=== PATIENT | female | born 1940 | race Caucasian/White ===

== ENCOUNTER → 2016-08-17 | Outpatient (REF) | payer MEDICARE | LOC: M LAB REF 12:43 | PROVIDERS: ATTEND Internal Medicine Medical Oncology | DX: C56.9 Malignant neoplasm of unspecified ovary (principal) ==

== ENCOUNTER → 2017-01-15 | Outpatient (REF) | payer MEDICARE ==
[2017-01-16 09:41] LABS: PERCENT SATURATION 14.5 % (13.2-37.4)
[2017-01-16 11:18] LABS: CA 125 5.6 U/ML (<30.2)
== END ==
LOC: M LAB REF 10:51
PROVIDERS: ATTEND Internal Medicine Medical Oncology
DX: C56.9 Malignant neoplasm of unspecified ovary (principal); D64.9 Anemia, unspecified

== ENCOUNTER → 2017-03-05 | Outpatient (REF) | payer MEDICARE | LOC: M LABDRAWC 16:19 | PROVIDERS: ATTEND Obstetrics & Gynecology Gynecologic Oncology | DX: C56.1 Malignant neoplasm of right ovary (principal) ==

== ENCOUNTER → 2017-07-19 | Outpatient (REF) | payer MEDICARE ==
[2017-07-20 09:45] LABS: CA 125 75.5 U/ML (<30.2)
== END ==
LOC: M LAB REF 13:03
DX: C56.9 Malignant neoplasm of unspecified ovary (principal)
CPT/HCPCS: 86304

== ENCOUNTER → 2017-07-30 | Outpatient (CLI) | payer MEDICARE ==
[~2017-07-30] MED LIST: GASTROGRAFIN SOLUTION 30ML (Q9963) As Ordered; ISOVUE-370 76% 100ML VIAL (Q9967) As Ordered
== END ==
LOC: M RAD 08:20
DX: R93.8 Abnormal findings on diagnostic imaging of other specified body structures (principal); R91.1 Solitary pulmonary nodule
CPT/HCPCS: Q9963

== ENCOUNTER → 2017-10-04 | Outpatient (REF) | payer MEDICARE ==
[2017-10-04 13:35] LABS: INR 0.97; PARTIAL THROMBOPLASTIN TIME 31.2 SECONDS (26.8-37.9)
[2017-10-05 10:46] LABS: CARCINOEMBRYONIC ANTIGEN 51.9 NG/ML (<2.5)
== END ==
LOC: M LAB REF 13:12
DX: C18.9 Malignant neoplasm of colon, unspecified (principal); Z79.01 Long term (current) use of anticoagulants
CPT/HCPCS: 82378

== ENCOUNTER → 2017-12-24 | Outpatient (REF) | payer MEDICARE ==
[2017-12-24 11:55] LABS: BASO % 0.4 % (0.0-1.0); EOS # 0.1 10^3/uL (0.0-0.50); HEMOGLOBIN 10.4 g/dl (12.0-15.5); IMMATURE GRANULOCYTE # 0.2 10^3/uL (0-0); IMMATURE GRANULOCYTE % 2.3 % (0-3.0); LYMPH # 1.1 10^3/uL (1.5-4.5); LYMPH % 10.7 % (24.0-44.0); MEAN CORPUSCULAR HEMOGLOBIN 29.7 pg (27.0-33.0); MEAN CORPUSCULAR HGB CONC 31.5 g/dl (32.0-36.5); MEAN CORPUSCULAR VOLUME 94.3 fl (80.0-96.0); MONO % 9.5 % (0.0-5.0); NEUTROPHILS # 7.8 10^3/uL (1.8-7.7); NEUTROPHILS % 76.1 % (36.0-66.0); RED CELL DISTRIBUTION WIDTH 20.3 % (11.5-14.5); WHITE BLOOD COUNT 10.2 10^3/uL (4.0-10.0)
[2017-12-24 12:11] LABS: PLATELET COUNT, AUTOMATED 91 10^3/uL (150-450)
[2017-12-24 12:12] LABS: IMMATURE PLATELET FRACTION % 5.4 % (0.0-9.6); PLATELET F 91; POSITIVE MORPH POS FLAG
[2017-12-24 12:26] LABS: ALBUMIN 3.3 GM/DL (3.2-5.2); ALBUMIN/GLOBULIN RATIO 1.14 (1.00-1.93); ALKALINE PHOSPHATASE 229 U/L (45-117); ALT/SGPT 54 U/L (12-78); ANION GAP 9 MEQ/L (8-16); AST/SGOT 50 U/L (7-37); BILIRUBIN,TOTAL 0.3 MG/DL (0.2-1.0); BLOOD UREA NITROGEN 14 MG/DL (7-18); CALCIUM LEVEL 8.9 MG/DL (8.8-10.2); CARBON DIOXIDE LEVEL 30 MEQ/L (21-32); CHLORIDE LEVEL 107 MEQ/L (98-107); CREATININE FOR GFR 0.99 MG/DL (0.55-1.30); GLOMERULAR FILTRATION RATE 57.8 (>39); GLUCOSE, FASTING 121 MG/DL (70-100); POTASSIUM SERUM 3.5 MEQ/L (3.5-5.1); SODIUM LEVEL 146 MEQ/L (136-145); TOTAL PROTEIN 6.2 GM/DL (6.4-8.2)
[2017-12-25 09:52] LABS: CARCINOEMBRYONIC ANTIGEN 2.5 NG/ML (<2.5)
== END ==
LOC: M LABDRAWC 11:28
DX: C18.9 Malignant neoplasm of colon, unspecified (principal); D64.9 Anemia, unspecified
CPT/HCPCS: 82378

== ENCOUNTER → 2017-12-31 | Outpatient (REF) | payer MEDICARE ==
[2017-12-31 12:37] LABS: BASO % 0.1 % (0.0-1.0); EOS # 0.1 10^3/uL (0.0-0.50); EOS % 1.4 % (0.0-3.0); HEMATOCRIT 34.2 % (36.0-47.0); HEMOGLOBIN 10.8 g/dl (12.0-15.5); IMMATURE GRANULOCYTE # 0.1 10^3/uL (0-0); IMMATURE GRANULOCYTE % 0.6 % (0-3.0); LYMPH # 1.1 10^3/uL (1.5-4.5); LYMPH % 13.8 % (24.0-44.0); MEAN CORPUSCULAR HEMOGLOBIN 30.1 pg (27.0-33.0); MEAN CORPUSCULAR HGB CONC 31.6 g/dl (32.0-36.5); MEAN CORPUSCULAR VOLUME 95.3 fl (80.0-96.0); MONO # 0.7 10^3/uL (0.0-0.8); MONO % 9.3 % (0.0-5.0); NEUTROPHILS # 5.8 10^3/uL (1.8-7.7); NEUTROPHILS % 74.8 % (36.0-66.0); PLATELET COUNT, AUTOMATED 132 10^3/uL (150-450); RED BLOOD COUNT 3.59 10^6/uL (4.00-5.40); RED CELL DISTRIBUTION WIDTH 20.9 % (11.5-14.5); WHITE BLOOD COUNT 7.7 10^3/uL (4.0-10.0)
== END ==
LOC: M LABDRAWC 11:45
DX: C18.9 Malignant neoplasm of colon, unspecified (principal)
CPT/HCPCS: 85027

== ENCOUNTER → 2018-01-14 | Outpatient (REF) | payer MEDICARE ==
[2018-01-14 13:50] LABS: BASO # 0.1 10^3/uL (0.0-0.2); BASO % 0.6 % (0.0-1.0); EOS # 0.1 10^3/uL (0.0-0.50); EOS % 0.9 % (0.0-3.0); HEMATOCRIT 32.9 % (36.0-47.0); HEMOGLOBIN 10.4 g/dl (12.0-15.5); IMMATURE GRANULOCYTE # 0.3 10^3/uL (0-0); IMMATURE GRANULOCYTE % 2.3 % (0-3.0); LYMPH # 1.2 10^3/uL (1.5-4.5); MEAN CORPUSCULAR HEMOGLOBIN 31.2 pg (27.0-33.0); MEAN CORPUSCULAR HGB CONC 31.6 g/dl (32.0-36.5); MEAN CORPUSCULAR VOLUME 98.8 fl (80.0-96.0); MONO # 0.8 10^3/uL (0.0-0.8); MONO % 7.7 % (0.0-5.0); NEUTROPHILS # 8.3 10^3/uL (1.8-7.7); NEUTROPHILS % 77.5 % (36.0-66.0); RED BLOOD COUNT 3.33 10^6/uL (4.00-5.40); RED CELL DISTRIBUTION WIDTH 21.3 % (11.5-14.5); WHITE BLOOD COUNT 10.7 10^3/uL (4.0-10.0)
[2018-01-14 14:10] LABS: ALBUMIN 3.3 GM/DL (3.2-5.2); ALKALINE PHOSPHATASE 239 U/L (45-117); ALT/SGPT 64 U/L (12-78); ANION GAP 10 MEQ/L (8-16); AST/SGOT 58 U/L (7-37); BILIRUBIN,TOTAL 0.3 MG/DL (0.2-1.0); BLOOD UREA NITROGEN 17 MG/DL (7-18); CALCIUM LEVEL 8.5 MG/DL (8.8-10.2); CARBON DIOXIDE LEVEL 29 MEQ/L (21-32); CHLORIDE LEVEL 107 MEQ/L (98-107); CREATININE FOR GFR 0.95 MG/DL (0.55-1.30); GLOMERULAR FILTRATION RATE > 60.0 (>39); GLUCOSE, FASTING 116 MG/DL (70-100); POTASSIUM SERUM 4.1 MEQ/L (3.5-5.1); SODIUM LEVEL 146 MEQ/L (136-145); TOTAL PROTEIN 6.3 GM/DL (6.4-8.2)
[2018-01-14 14:29] LABS: PLATELET COUNT, AUTOMATED 77 10^3/uL (150-450)
[2018-01-14 14:30] LABS: IMMATURE PLATELET FRACTION % 7.2 % (0.0-9.6)
[2018-01-15 09:11] LABS: CARCINOEMBRYONIC ANTIGEN 1.3 NG/ML (<2.5)
== END ==
LOC: M LABDRAWC 12:16
DX: C18.9 Malignant neoplasm of colon, unspecified (principal); D64.9 Anemia, unspecified
CPT/HCPCS: 82378

== ENCOUNTER → 2018-01-21 | Outpatient (REF) | payer MEDICARE ==
[2018-01-21 11:17] LABS: BASO % 0.1 % (0.0-1.0); EOS # 0.1 10^3/uL (0.0-0.50); EOS % 1.8 % (0.0-3.0); HEMATOCRIT 33.6 % (36.0-47.0); HEMOGLOBIN 10.7 g/dl (12.0-15.5); IMMATURE GRANULOCYTE % 0.4 % (0-3.0); LYMPH % 13.5 % (24.0-44.0); MEAN CORPUSCULAR HEMOGLOBIN 31.8 pg (27.0-33.0); MEAN CORPUSCULAR HGB CONC 31.8 g/dl (32.0-36.5); MEAN CORPUSCULAR VOLUME 99.7 fl (80.0-96.0); MONO # 0.7 10^3/uL (0.0-0.8); MONO % 9.7 % (0.0-5.0); NEUTROPHILS # 5.4 10^3/uL (1.8-7.7); NEUTROPHILS % 74.5 % (36.0-66.0); PLATELET COUNT, AUTOMATED 145 10^3/uL (150-450); RED BLOOD COUNT 3.37 10^6/uL (4.00-5.40); RED CELL DISTRIBUTION WIDTH 21.6 % (11.5-14.5); WHITE BLOOD COUNT 7.2 10^3/uL (4.0-10.0)
== END ==
LOC: M LABDRAWC 11:00
DX: Z79.899 Other long term (current) drug therapy (principal)
CPT/HCPCS: 85027

== ENCOUNTER → 2018-02-01 | Outpatient (REF) | payer MEDICARE ==
[2018-02-01 11:49] LABS: BASO # 0.1 10^3/uL (0.0-0.2); BASO % 0.5 % (0.0-1.0); EOS # 0.1 10^3/uL (0.0-0.50); EOS % 1.1 % (0.0-3.0); HEMATOCRIT 31.5 % (36.0-47.0); HEMOGLOBIN 10.1 g/dl (12.0-15.5); IMMATURE GRANULOCYTE # 0.2 10^3/uL (0-0); IMMATURE GRANULOCYTE % 1.5 % (0-3.0); LYMPH # 1.1 10^3/uL (1.5-4.5); LYMPH % 11.3 % (24.0-44.0); MEAN CORPUSCULAR HEMOGLOBIN 32.9 pg (27.0-33.0); MEAN CORPUSCULAR HGB CONC 32.1 g/dl (32.0-36.5); MEAN CORPUSCULAR VOLUME 102.6 fl (80.0-96.0); MONO # 1.2 10^3/uL (0.0-0.8); MONO % 12.2 % (0.0-5.0); NEUTROPHILS # 7.2 10^3/uL (1.8-7.7); NEUTROPHILS % 73.4 % (36.0-66.0); RED BLOOD COUNT 3.07 10^6/uL (4.00-5.40); RED CELL DISTRIBUTION WIDTH 19.5 % (11.5-14.5); WHITE BLOOD COUNT 9.8 10^3/uL (4.0-10.0)
[2018-02-01 12:02] LABS: ALBUMIN 3.2 GM/DL (3.2-5.2); ALBUMIN/GLOBULIN RATIO 1.14 (1.00-1.93); ALKALINE PHOSPHATASE 236 U/L (45-117); ALT/SGPT 51 U/L (12-78); ANION GAP 10 MEQ/L (8-16); AST/SGOT 48 U/L (7-37); BILIRUBIN,TOTAL 0.4 MG/DL (0.2-1.0); BLOOD UREA NITROGEN 13 MG/DL (7-18); CALCIUM LEVEL 8.8 MG/DL (8.8-10.2); CARBON DIOXIDE LEVEL 30 MEQ/L (21-32); CHLORIDE LEVEL 105 MEQ/L (98-107); CREATININE FOR GFR 0.88 MG/DL (0.55-1.30); GLOMERULAR FILTRATION RATE > 60.0 (>39); GLUCOSE, FASTING 112 MG/DL (70-100); POTASSIUM SERUM 3.8 MEQ/L (3.5-5.1); SODIUM LEVEL 145 MEQ/L (136-145)
[2018-02-01 12:13] LABS: CARCINOEMBRYONIC ANTIGEN 0.7 NG/ML (<2.5)
[2018-02-01 12:34] LABS: PLATELET COUNT, AUTOMATED 87 10^3/uL (150-450)
[2018-02-01 12:35] LABS: IMMATURE PLATELET FRACTION % 6.7 % (0.0-9.6)
== END ==
LOC: M LAB REF 11:40
DX: C18.9 Malignant neoplasm of colon, unspecified (principal); D64.9 Anemia, unspecified
CPT/HCPCS: 82378

== ENCOUNTER → 2018-02-08 | Outpatient (REF) | payer MEDICARE ==
[2018-02-08 11:44] LABS: BASO % 0.2 % (0.0-1.0); EOS # 0.2 10^3/uL (0.0-0.50); EOS % 2.1 % (0.0-3.0); HEMATOCRIT 33.5 % (36.0-47.0); HEMOGLOBIN 10.7 g/dl (12.0-15.5); IMMATURE GRANULOCYTE # 0.1 10^3/uL (0-0); IMMATURE GRANULOCYTE % 0.6 % (0-3.0); LYMPH # 1.1 10^3/uL (1.5-4.5); LYMPH % 12.4 % (24.0-44.0); MEAN CORPUSCULAR HEMOGLOBIN 33.1 pg (27.0-33.0); MEAN CORPUSCULAR HGB CONC 31.9 g/dl (32.0-36.5); MEAN CORPUSCULAR VOLUME 103.7 fl (80.0-96.0); MONO # 0.8 10^3/uL (0.0-0.8); MONO % 8.5 % (0.0-5.0); NEUTROPHILS # 6.9 10^3/uL (1.8-7.7); NEUTROPHILS % 76.2 % (36.0-66.0); PLATELET COUNT, AUTOMATED 134 10^3/uL (150-450); RED BLOOD COUNT 3.23 10^6/uL (4.00-5.40); RED CELL DISTRIBUTION WIDTH 18.6 % (11.5-14.5)
== END ==
LOC: M LAB REF 11:24
DX: Z51.81 Encounter for therapeutic drug level monitoring (principal); Z79.899 Other long term (current) drug therapy
CPT/HCPCS: 85027

== ENCOUNTER → 2018-03-04 | Outpatient (REF) | payer MEDICARE ==
[2018-03-04 12:04] LABS: BASO % 0.2 % (0.0-1.0); EOS # 0.1 10^3/uL (0.0-0.50); EOS % 1.8 % (0.0-3.0); HEMATOCRIT 35.2 % (36.0-47.0); HEMOGLOBIN 11.1 g/dl (12.0-15.5); IMMATURE GRANULOCYTE % 0.2 % (0-3.0); LYMPH # 0.7 10^3/uL (1.5-4.5); LYMPH % 11.9 % (24.0-44.0); MEAN CORPUSCULAR HEMOGLOBIN 33.8 pg (27.0-33.0); MEAN CORPUSCULAR HGB CONC 31.5 g/dl (32.0-36.5); MEAN CORPUSCULAR VOLUME 107.3 fl (80.0-96.0); MONO # 0.6 10^3/uL (0.0-0.8); NEUTROPHILS # 4.1 10^3/uL (1.8-7.7); NEUTROPHILS % 74.9 % (36.0-66.0); PLATELET COUNT, AUTOMATED 159 10^3/uL (150-450); RED BLOOD COUNT 3.28 10^6/uL (4.00-5.40); RED CELL DISTRIBUTION WIDTH 15.2 % (11.5-14.5); WHITE BLOOD COUNT 5.5 10^3/uL (4.0-10.0)
[2018-03-04 12:23] LABS: ALBUMIN 3.1 GM/DL (3.2-5.2); ALBUMIN/GLOBULIN RATIO 1.07 (1.00-1.93); ALKALINE PHOSPHATASE 239 U/L (45-117); ALT/SGPT 48 U/L (12-78); ANION GAP 8 MEQ/L (8-16); AST/SGOT 51 U/L (7-37); BILIRUBIN,TOTAL 0.3 MG/DL (0.2-1.0); BLOOD UREA NITROGEN 15 MG/DL (7-18); CALCIUM LEVEL 8.9 MG/DL (8.8-10.2); CARBON DIOXIDE LEVEL 30 MEQ/L (21-32); CHLORIDE LEVEL 108 MEQ/L (98-107); CREATININE FOR GFR 0.76 MG/DL (0.55-1.30); GLOMERULAR FILTRATION RATE > 60.0 (>39); GLUCOSE, FASTING 98 MG/DL (70-100); POTASSIUM SERUM 4.3 MEQ/L (3.5-5.1); SODIUM LEVEL 146 MEQ/L (136-145)
[2018-03-05 08:20] LABS: CARCINOEMBRYONIC ANTIGEN 0.5 NG/ML (<2.5)
== END ==
LOC: M SFHCCLAY 11:36
DX: Z79.899 Other long term (current) drug therapy (principal)
CPT/HCPCS: 82378

== ENCOUNTER → 2018-04-15 | Outpatient (REF) | payer MEDICARE ==
[2018-04-15 11:53] LABS: BASO % 0.3 % (0.0-1.0); EOS # 0.1 10^3/uL (0.0-0.50); EOS % 1.4 % (0.0-3.0); HEMATOCRIT 37.5 % (36.0-47.0); HEMOGLOBIN 11.7 g/dl (12.0-15.5); IMMATURE GRANULOCYTE % 0.3 % (0-3.0); LYMPH # 0.8 10^3/uL (1.5-4.5); LYMPH % 12.1 % (24.0-44.0); MEAN CORPUSCULAR HEMOGLOBIN 33.1 pg (27.0-33.0); MEAN CORPUSCULAR HGB CONC 31.2 g/dl (32.0-36.5); MEAN CORPUSCULAR VOLUME 106.2 fl (80.0-96.0); MONO # 0.6 10^3/uL (0.0-0.8); MONO % 8.9 % (0.0-5.0); NEUTROPHILS # 5.1 10^3/uL (1.8-7.7); PLATELET COUNT, AUTOMATED 139 10^3/uL (150-450); RED BLOOD COUNT 3.53 10^6/uL (4.00-5.40); RED CELL DISTRIBUTION WIDTH 14.8 % (11.5-14.5); WHITE BLOOD COUNT 6.6 10^3/uL (4.0-10.0)
[2018-04-15 12:19] LABS: ALBUMIN 3.2 GM/DL (3.2-5.2); ALBUMIN/GLOBULIN RATIO 1.07 (1.00-1.93); ALKALINE PHOSPHATASE 239 U/L (45-117); ALT/SGPT 59 U/L (12-78); ANION GAP 6 MEQ/L (8-16); AST/SGOT 67 U/L (7-37); BILIRUBIN,TOTAL 0.4 MG/DL (0.2-1.0); BLOOD UREA NITROGEN 15 MG/DL (7-18); CALCIUM LEVEL 8.6 MG/DL (8.8-10.2); CARBON DIOXIDE LEVEL 30 MEQ/L (21-32); CHLORIDE LEVEL 108 MEQ/L (98-107); CREATININE FOR GFR 0.85 MG/DL (0.55-1.30); GLOMERULAR FILTRATION RATE > 60.0 (>39); GLUCOSE, FASTING 126 MG/DL (70-100); POTASSIUM SERUM 4.3 MEQ/L (3.5-5.1); SODIUM LEVEL 144 MEQ/L (136-145); TOTAL PROTEIN 6.2 GM/DL (6.4-8.2)
[2018-04-16 09:03] LABS: CARCINOEMBRYONIC ANTIGEN < 0.5 NG/ML (<2.5)
== END ==
LOC: M LABDRAWC 11:12
DX: Z79.899 Other long term (current) drug therapy (principal)
CPT/HCPCS: 82378

== ENCOUNTER → 2018-10-10 | Outpatient (REF) | payer MEDICARE ==
[2018-10-10 19:28] LABS: FREE T4 1.18 NG/DL (0.76-1.46); THYROID STIMULATING HORMONE 3.94 uIU/ML (0.358-3.740)
== END ==
LOC: M SFHCCLAY 17:32
PROVIDERS: ATTEND Family Medicine
DX: E04.2 Nontoxic multinodular goiter (principal)

== ENCOUNTER → 2018-10-10 | Outpatient (REF) | payer MEDICARE ==
[2018-10-10 18:53] LABS: BASO % 0.6 % (0.0-1.0); EOS # 0.1 10^3/uL (0.0-0.50); EOS % 2.1 % (0.0-3.0); HEMATOCRIT 37.8 % (36.0-47.0); HEMOGLOBIN 12.3 g/dl (12.0-15.5); LYMPH # 1.1 10^3/uL (1.5-4.5); LYMPH % 23.6 % (24.0-44.0); MEAN CORPUSCULAR HEMOGLOBIN 30.4 pg (27.0-33.0); MEAN CORPUSCULAR HGB CONC 32.5 g/dl (32.0-36.5); MEAN CORPUSCULAR VOLUME 93.3 fl (80.0-96.0); MONO # 0.4 10^3/uL (0.0-0.8); NEUTROPHILS # 3.1 10^3/uL (1.8-7.7); NEUTROPHILS % 64.5 % (36.0-66.0); PLATELET COUNT, AUTOMATED 192 10^3/uL (150-450); RED BLOOD COUNT 4.05 10^6/uL (4.00-5.40); WHITE BLOOD COUNT 4.8 10^3/uL (4.0-10.0)
[2018-10-10 18:58] LABS: APPEARANCE, URINE HAZY (CLEAR); BACTERIA, URINE AUTO 1+ (NEGATIVE); BILIRUBIN, URINE AUTO NEGATIVE (NEGATIVE); BLOOD, URINE BLOOD NEGATIVE (NEGATIVE); CALCIUM OXALATE CRYSTALS MODERATE; COLOR, URINE YELLOW (YELLOW); GLUCOSE, URINE (UA) AUTO NEGATIVE (NEGATIVE); KETONE, URINE AUTO NEGATIVE (NEGATIVE); LEUKOCYTE ESTERASE, URINE AUTO 3+ (NEGATIVE); MUCUS, URINE SMALL (NEGATIVE); NITRITE, URINE AUTO NEGATIVE (NEGATIVE); PROTEIN, URINE AUTO NEGATIVE (NEGATIVE); RBC, URINE AUTO 3 /HPF (0-3); SQUAMOUS EPITHELIAL CELL UR AU 8 /HPF (0-6); UROBILINOGEN, URINE AUTO 0.2 mg/dL (0.0-2.0); WBC, URINE AUTO 33 /HPF (0-3)
[2018-10-10 19:04] LABS: ALBUMIN 3.8 GM/DL (3.2-5.2); ALT/SGPT 92 U/L (12-78); BILIRUBIN,TOTAL 0.6 MG/DL (0.2-1.0); BLOOD UREA NITROGEN 24 MG/DL (7-18); CALCIUM LEVEL 9.1 MG/DL (8.8-10.2); CARBON DIOXIDE LEVEL 31 MEQ/L (21-32); CHLORIDE LEVEL 106 MEQ/L (98-107); CREATININE FOR GFR 0.86 MG/DL (0.55-1.30); GLOMERULAR FILTRATION RATE > 60.0 (>39); GLUCOSE, FASTING 100 MG/DL (70-100); POTASSIUM SERUM 4.3 MEQ/L (3.5-5.1); SODIUM LEVEL 142 MEQ/L (136-145); TOTAL PROTEIN 6.8 GM/DL (6.4-8.2)
== END ==
LOC: M LABDRAWC 17:34
PROVIDERS: ATTEND Internal Medicine Hematology & Oncology
DX: C18.9 Malignant neoplasm of colon, unspecified (principal); R74.8 Abnormal levels of other serum enzymes; D64.9 Anemia, unspecified; R30.0 Dysuria
CPT/HCPCS: 36415; 80053; 81001; 82378; 84439; 84443; 85027; 87086; G0463

== ENCOUNTER → 2019-01-09 | Outpatient (REF) | payer MEDICARE ==
[2019-01-09 11:58] LABS: HEMATOCRIT 38.3 % (36.0-47.0); HEMOGLOBIN 12.5 g/dl (12.0-15.5); MEAN CORPUSCULAR VOLUME 96.7 fl (80.0-96.0); RED BLOOD COUNT 3.96 10^6/uL (4.00-5.40); WHITE BLOOD COUNT 4.3 10^3/uL (4.0-10.0)
[2019-01-09 11:59] LABS: BASO % 0.5 % (0.0-1.0); EOS # 0.1 10^3/uL (0.0-0.50); EOS % 1.6 % (0.0-3.0); LYMPH # 0.9 10^3/uL (1.5-4.5); LYMPH % 21.7 % (24.0-44.0); MEAN CORPUSCULAR HEMOGLOBIN 31.6 pg (27.0-33.0); MEAN CORPUSCULAR HGB CONC 32.6 g/dl (32.0-36.5); MONO # 0.5 10^3/uL (0.0-0.8); MONO % 10.8 % (0.0-5.0); NEUTROPHILS # 2.8 10^3/uL (1.8-7.7); NEUTROPHILS % 65.2 % (36.0-66.0); PLATELET COUNT, AUTOMATED 176 10^3/uL (150-450)
[2019-01-09 12:39] LABS: ALBUMIN 3.3 GM/DL (3.2-5.2); ALT/SGPT 70 U/L (12-78); BILIRUBIN,TOTAL 0.7 MG/DL (0.2-1.0); BLOOD UREA NITROGEN 22 MG/DL (7-18); CALCIUM LEVEL 9.1 MG/DL (8.8-10.2); CARBON DIOXIDE LEVEL 29 MEQ/L (21-32); CHLORIDE LEVEL 108 MEQ/L (98-107); CREATININE FOR GFR 0.85 MG/DL (0.55-1.30); GLOMERULAR FILTRATION RATE > 60.0 (>39); GLUCOSE, FASTING 111 MG/DL (70-100); POTASSIUM SERUM 4.6 MEQ/L (3.5-5.1); SODIUM LEVEL 142 MEQ/L (136-145); TOTAL PROTEIN 6.3 GM/DL (6.4-8.2)
== END ==
LOC: M LABDRAWC 11:15
PROVIDERS: ATTEND Internal Medicine Hematology & Oncology
DX: C18.9 Malignant neoplasm of colon, unspecified (principal); R74.8 Abnormal levels of other serum enzymes

== ENCOUNTER → 2019-01-22 | Outpatient (CLI) | payer MEDICARE ==
[~2019-01-22] MED LIST changes: -GASTROGRAFIN SOLUTION 30ML (Q9963) As Ordered; +GASTROGRAFIN SOLUTION 30ML (Q9963) As Ordered ONE; -ISOVUE-370 76% 100ML VIAL (Q9967) As Ordered; +ISOVUE-370 76% 100ML VIAL (Q9967) As Ordered ONE
--- NOTE | 2019-01-22 15:49 | REP ---
Clinical: Colon cancer. Technique: Axial contrast enhanced images from the thoracic inlet to the upper abdomen with coronal and sagittal re-formations using 100 ml Isovue 370 intravenous contrast material. Comparison: 07/30/2017. Findings: The bilateral lung fam are relatively well aerated and symmetric. A stable 5 mm density inseparable from the minor fissure (image 47) remains unchanged compared to 2014. Current examination demonstrates a very subtle areas of pleural-based thickening along the posterior left lung which may reflect small focal areas of dependent change although active pathology less likely cannot be excluded. Minimal scarring at the lingula remains stable. No further acute consolidation, significant nodule or mass lesion. No pleural effusion. Tracheobronchial tree is patent. No obvious adenopathy. The mediastinum demonstrates normal thoracic aorta, pulmonary vasculature and heart/pericardium. [id number] is identified with tip in the right atrium. Surrounding musculoskeletal structures without focal osseous abnormality. Impression: 1. Very small areas of pleural-based thickening/subpleural density along the posterior left lung likely represent dependent changes and less likely active pathology. Remainder examination is essentially normal. Consider follow-up examination in 6 months to evaluate for resolution or change. Electronically Signed by Buzz Gtz MD 01/22/2019 03:41 P
--- NOTE | 2019-01-22 17:07 | REP ---
HISTORY: History of colon carcinoma. COMPARISON: Multiple, the latest 07/30/2017. CONTRAST: 100 mL Isovue-370 There is cholelithiasis. There is mild thickening of a mild enhancing gallbladder wall. This represents a change from the prior exam. There is mild intrahepatic ductal dilatation, also representing a change from the prior exam. There is a small lesion in the posterior segment of the right lobe of the liver with peripheral nodular enhancement, stable from 12/09/2015 which was also reviewed. The spleen, pancreas, and adrenal glands are within normal limits and essentially unchanged. The right kidney is essentially unchanged. Tiny cortical cysts are present. In the inferior pole of the left kidney along the posterolateral cortical surface, there is a small enhancing nodule which measures approximately 1 cm. This represents a change from the prior exams. This is seen in conjunction with small renal cysts which are stable. The abdominal aorta and periaortic regions are within normal limits. The bowel loops and their mesenteries are within normal limits. There are right lower quadrant postoperative changes. There is no free fluid or free air. CT PELVIS: The large right hemipelvic mass is no longer present. There is marked sigmoid colon diverticulosis. There is no free fluid or free air. There is no evidence of pelvic sidewall adenopathy. Bone window technique throughout the exam shows chronic spinal degenerative changes. IMPRESSION: 1. There is cholelithiasis and a mildly thickened, mildly enhancing gallbladder wall. This should be correlated clinically to assess for cholecystitis if clinically relevant. 2. There is mild intrahepatic ductal dilatation of uncertain etiology. 3. There is a small but enhancing left renal nodule as described above. I cannot rule out the possibility of neoplastic change, although subtle. 4. Postoperative changes and resection of large right lower quadrant mass. 5. Advanced sigmoid colon and descending colon diverticulosis. 6. Other findings as described above. Electronically Signed by Aman Shelton DO 02/03/2019 04:23 P
== END ==
LOC: M RAD 11:50
PROVIDERS: ATTEND Internal Medicine Hematology & Oncology
DX: Z85.038 Personal history of other malignant neoplasm of large intestine (principal); R78.4 Finding of other drugs of addictive potential in blood; R91.8 Other nonspecific abnormal finding of lung field
CPT/HCPCS: 71260; 74177; Q9963; Q9967

== ENCOUNTER → 2019-02-19 | Outpatient (RCR) | payer MEDICARE | LOC: M PT 02-04 08:56 | PROVIDERS: ATTEND Internal Medicine Hematology & Oncology | DX: I89.0 Lymphedema, not elsewhere classified (principal); C18.9 Malignant neoplasm of colon, unspecified; R74.8 Abnormal levels of other serum enzymes ==

== ENCOUNTER 2019-03-06 09:11 | Outpatient (RCR) | payer MEDICARE | END 2019-03-22 | LOC: M PT 09:11 | PROVIDERS: ATTEND Internal Medicine Hematology & Oncology | DX: I89.0 Lymphedema, not elsewhere classified (principal); C18.8 Malignant neoplasm of overlapping sites of colon; R74.8 Abnormal levels of other serum enzymes ==

== ENCOUNTER → 2019-05-07 | Outpatient (REF) | payer MEDICARE ==
[2019-05-07 11:55] LABS: BASO % 0.6 % (0.0-1.0); EOS # 0.1 10^3/uL (0.0-0.5); EOS % 2.1 % (0.0-3.0); HEMATOCRIT 40.7 % (36.0-47.0); HEMOGLOBIN 13.2 g/dl (12.0-15.5); LYMPH # 1.2 10^3/uL (1.5-5.0); LYMPH % 23.6 % (24.0-44.0); MEAN CORPUSCULAR HEMOGLOBIN 30.4 pg (27.0-33.0); MEAN CORPUSCULAR HGB CONC 32.4 g/dl (32.0-36.5); MEAN CORPUSCULAR VOLUME 93.8 fl (80.0-96.0); MONO # 0.6 10^3/uL (0.0-0.8); MONO % 11.3 % (0.0-5.0); NEUTROPHILS # 3.3 10^3/uL (1.5-8.5); NEUTROPHILS % 62.2 % (36.0-66.0); PLATELET COUNT, AUTOMATED 187 10^3/uL (150-450); RED BLOOD COUNT 4.34 10^6/uL (4.00-5.40); WHITE BLOOD COUNT 5.2 10^3/uL (4.0-10.0)
[2019-05-07 12:07] LABS: ALBUMIN 3.7 GM/DL (3.2-5.2); ALT/SGPT 64 U/L (12-78); BILIRUBIN,TOTAL 0.8 MG/DL (0.2-1.0); BLOOD UREA NITROGEN 21 MG/DL (7-18); CALCIUM LEVEL 9.4 MG/DL (8.8-10.2); CARBON DIOXIDE LEVEL 30 MEQ/L (21-32); CHLORIDE LEVEL 105 MEQ/L (98-107); GLOMERULAR FILTRATION RATE > 60.0 (>39); GLUCOSE, FASTING 94 MG/DL (70-100); POTASSIUM SERUM 4.8 MEQ/L (3.5-5.1); SODIUM LEVEL 140 MEQ/L (136-145); TOTAL PROTEIN 6.7 GM/DL (6.4-8.2)
== END ==
LOC: M LABDRAWC 11:33
PROVIDERS: ATTEND Internal Medicine Hematology & Oncology
DX: C18.9 Malignant neoplasm of colon, unspecified (principal); R74.8 Abnormal levels of other serum enzymes
CPT/HCPCS: 36415; 80053; 82378; 85027; 90682; G0008

== ENCOUNTER → 2019-06-04 | Outpatient (CLI) | payer MEDICARE | LOC: M RAD 15:52 | PROVIDERS: ATTEND Internal Medicine Hematology & Oncology | DX: C18.9 Malignant neoplasm of colon, unspecified (principal) ==

== ENCOUNTER → 2019-08-19 | Outpatient (REF) | payer MEDICARE ==
[2019-08-19 12:15] LABS: BASO % 0.4 % (0.0-1.0); EOS # 0.1 10^3/uL (0.0-0.5); HEMATOCRIT 41.5 % (36.0-47.0); HEMOGLOBIN 12.9 g/dl (12.0-15.5); LYMPH # 1.1 10^3/uL (1.5-5.0); LYMPH % 21.3 % (24.0-44.0); MEAN CORPUSCULAR HGB CONC 31.1 g/dl (32.0-36.5); MEAN CORPUSCULAR VOLUME 96.5 fl (80.0-96.0); MONO # 0.6 10^3/uL (0.0-0.8); MONO % 12.3 % (0.0-5.0); NEUTROPHILS # 3.3 10^3/uL (1.5-8.5); NEUTROPHILS % 63.8 % (36.0-66.0); PLATELET COUNT, AUTOMATED 171 10^3/uL (150-450); WHITE BLOOD COUNT 5.1 10^3/uL (4.0-10.0)
[2019-08-19 12:21] LABS: ALBUMIN 3.8 GM/DL (3.2-5.2); ALT/SGPT 49 U/L (12-78); BILIRUBIN,TOTAL 0.6 MG/DL (0.2-1.0); BLOOD UREA NITROGEN 23 MG/DL (7-18); CALCIUM LEVEL 9.1 MG/DL (8.8-10.2); CARBON DIOXIDE LEVEL 30 MEQ/L (21-32); CHLORIDE LEVEL 107 MEQ/L (98-107); GLOMERULAR FILTRATION RATE > 60.0 (>32); GLUCOSE, FASTING 95 MG/DL (70-100); POTASSIUM SERUM 4.9 MEQ/L (3.5-5.1); SODIUM LEVEL 142 MEQ/L (136-145); TOTAL PROTEIN 6.8 GM/DL (6.4-8.2)
== END ==
LOC: M LAB REF 11:51
PROVIDERS: ATTEND Internal Medicine Hematology & Oncology
DX: C18.9 Malignant neoplasm of colon, unspecified (principal); R74.8 Abnormal levels of other serum enzymes; R22.42 Localized swelling, mass and lump, left lower limb

== ENCOUNTER 2019-09-08 08:58 | Outpatient (RCR) | payer MEDICARE | END 2019-09-20 | LOC: M PT 08:58 | PROVIDERS: ATTEND Internal Medicine Hematology & Oncology | DX: I89.0 Lymphedema, not elsewhere classified (principal) ==

== ENCOUNTER → 2020-02-24 | Outpatient (REF) | payer MEDICARE ==
[2020-03-22 20:20] LABS: BASO % 0.4 % (0.0-1.0); EOS # 0.1 10^3/uL (0.0-0.5); EOS % 2.3 % (0.0-3.0); HEMATOCRIT 40.5 % (36.0-47.0); HEMOGLOBIN 12.7 g/dl (12.0-15.5); LYMPH # 1.1 10^3/uL (1.5-5.0); LYMPH % 23.5 % (24.0-44.0); MEAN CORPUSCULAR HGB CONC 31.4 g/dl (32.0-36.5); MEAN CORPUSCULAR VOLUME 95.5 fl (80.0-96.0); MONO # 0.5 10^3/uL (0.0-0.8); MONO % 10.4 % (0.0-5.0); NEUTROPHILS % 63.2 % (36.0-66.0); PLATELET COUNT, AUTOMATED 177 10^3/uL (150-450); RED BLOOD COUNT 4.24 10^6/uL (4.00-5.40); WHITE BLOOD COUNT 4.7 10^3/uL (4.0-10.0)
[2020-04-09 12:51] LABS: ALBUMIN 3.9 GM/DL (3.2-5.2); ALT/SGPT 60 U/L (12-78); BILIRUBIN,TOTAL 0.9 MG/DL (0.2-1.0); BLOOD UREA NITROGEN 18 MG/DL (7-18); CALCIUM LEVEL 9.2 MG/DL (8.8-10.2); CARBON DIOXIDE LEVEL 30 MEQ/L (21-32); CHLORIDE LEVEL 107 MEQ/L (98-107); GLOMERULAR FILTRATION RATE > 60.0 (>32); GLUCOSE, FASTING 101 MG/DL (70-100); POTASSIUM SERUM 4.6 MEQ/L (3.5-5.1); SODIUM LEVEL 140 MEQ/L (136-145); TOTAL PROTEIN 6.8 GM/DL (6.4-8.2)
== END ==
LOC: M LABDRAWC 12:23
PROVIDERS: ATTEND Internal Medicine Hematology & Oncology
DX: C18.9 Malignant neoplasm of colon, unspecified (principal); R74.8 Abnormal levels of other serum enzymes; R22.42 Localized swelling, mass and lump, left lower limb; C56.9 Malignant neoplasm of unspecified ovary

== ENCOUNTER → 2020-03-03 | Outpatient (CLI) | payer MEDICARE ==
--- NOTE | 2020-04-14 09:02 | REP ---
CT CHEST WITHOUT CONTRAST HISTORY: Stage III colon carcinoma. Surveillance CT study. ALLERGIES: PATIENT IS ALLERGIC TO IODINE. COMPARISON: CT chest study 01/22/2019. CT FINDINGS: Preliminary digital scouts radiograph shows no significant abnormality. A right- sided Infusaport catheter is seen. Axial CT images show mild vascular calcification. The Infusaport catheter is seen terminating in the right atrium. No pleural or pericardial effusion is seen. No hilar or mediastinal mass or adenopathy is observed. There is left- sided thyroid enlargement with some calcifications and nodular change. This is unchanged from 01/22/2019. There is minimal linear fibrosis in the right middle lobe and in the lingula. No pulmonary mass is seen. No pulmonary nodule is appreciated. There is a small accessory splenule. There are tiny calcified gallstones in the gallbladder. No focal liver lesion is seen on this noncontrast CT study. There is a cyst posteriorly in the left kidney, 1.8 cm in diameter. IMPRESSION: Right-sided Infusaport catheter. Left thyroid nodule unchanged. Cyst in the left mid kidney. Cholelithiasis. Otherwise, no acute disease. MTDD
--- NOTE | 2020-04-14 09:04 | REP ---
FINDINGS: Calcified small gallstones are visible. No focal liver lesion is seen. Spleen is unremarkable and unchanged. There is a 1.5 cm cyst in the left mid kidney posteriorly unchanged. No evidence of hydronephrosis. There are scattered pancolonic diverticulosis. Right colonic anastomosis is seen. There is a peripherally calcified stable nodular 1.6 cm density adjacent to the ileocolic anastomosis unchanged from comparison study. There is a 1.2 x 1.2 cm stable right common iliac lymph node unchanged from 06/04/2019. No other evidence of adenopathy is seen. Uterus is surgically absent. No abdominal wall defect is seen. No bony destructive lesions appreciated. IMPRESSION: Stable abdominal and pelvic CT findings. MTDD
== END ==
LOC: M RAD 11:00
PROVIDERS: ATTEND Internal Medicine Hematology & Oncology
DX: R74.8 Abnormal levels of other serum enzymes (principal); R22.42 Localized swelling, mass and lump, left lower limb; Z95.9 Presence of cardiac and vascular implant and graft, unspecified; E04.1 Nontoxic single thyroid nodule; N28.1 Cyst of kidney, acquired; K80.20 Calculus of gallbladder without cholecystitis without obstruction; C18.9 Malignant neoplasm of colon, unspecified

== ENCOUNTER → 2020-08-06 | Outpatient (REF) | payer MEDICARE ==
[2020-08-06 16:04] LABS: BASO % 0.6 % (0.0-1.0); EOS # 0.1 10^3/uL (0.0-0.5); EOS % 2.3 % (0.0-3.0); HEMATOCRIT 40.4 % (36.0-47.0); HEMOGLOBIN 12.9 g/dl (12.0-15.5); LYMPH # 1.2 10^3/uL (1.5-5.0); LYMPH % 25.8 % (24.0-44.0); MEAN CORPUSCULAR HEMOGLOBIN 30.7 pg (27.0-33.0); MEAN CORPUSCULAR HGB CONC 31.9 g/dl (32.0-36.5); MEAN CORPUSCULAR VOLUME 96.2 fl (80.0-96.0); MONO # 0.6 10^3/uL (0.0-0.8); MONO % 11.6 % (0.0-5.0); NEUTROPHILS # 2.9 10^3/uL (1.5-8.5); NEUTROPHILS % 59.5 % (36.0-66.0); PLATELET COUNT, AUTOMATED 180 10^3/uL (150-450); WHITE BLOOD COUNT 4.8 10^3/uL (4.0-10.0)
[2020-08-06 16:47] LABS: ALBUMIN 3.8 GM/DL (3.2-5.2); ALT/SGPT 53 U/L (12-78); BILIRUBIN,TOTAL 0.7 MG/DL (0.2-1.0); BLOOD UREA NITROGEN 21 MG/DL (7-18); CALCIUM LEVEL 9.1 MG/DL (8.8-10.2); CARBON DIOXIDE LEVEL 30 MEQ/L (21-32); CHLORIDE LEVEL 104 MEQ/L (98-107); GLOMERULAR FILTRATION RATE > 60.0 (>32); GLUCOSE, FASTING 95 MG/DL (70-100); POTASSIUM SERUM 4.7 MEQ/L (3.5-5.1); SODIUM LEVEL 139 MEQ/L (136-145); TOTAL PROTEIN 6.9 GM/DL (6.4-8.2)
== END ==
LOC: M LABDRAWC 15:52
PROVIDERS: ATTEND Internal Medicine Hematology & Oncology
DX: C18.9 Malignant neoplasm of colon, unspecified (principal); C56.9 Malignant neoplasm of unspecified ovary; R74.8 Abnormal levels of other serum enzymes; R22.42 Localized swelling, mass and lump, left lower limb

== ENCOUNTER → 2020-09-01 | Outpatient (CLI) | payer MEDICARE ==
--- NOTE | 2020-09-01 19:14 | REP ---
INDICATION: MALIGNANT NEOPLASM OF COLON, UNSPEC COMPARISON: 03/03/2020 TECHNIQUE: Axial noncontrast images from the thoracic inlet to the upper abdomen with coronal and sagittal reformations. This CT examination was performed using the following dose reduction techniques: Automated exposure control, adjustment of mA and/or kv according to the patient's size, and use of iterative reconstruction technique. FINDINGS: Bilateral lung fam are relatively well aerated. Minimal scarring in the right middle lobe and lingula and to a lesser extent left lower lobe. No acute consolidation, significant nodule or mass lesion. Tracheobronchial tree is patent. No obvious axillary, hilar, or mediastinal adenopathy. [id number] identified with tip in the right atrium. Mild atherosclerotic changes to the thoracic aorta and coronary arteries noted without aortic aneurysm or cardiomegaly. No pericardial effusion. Heterogeneous enlarged left thyroid lobe with punctate calcifications again noted. Surrounding musculoskeletal structures demonstrate age-related changes without acute osseous abnormality. IMPRESSION: 1. Minimal scattered scarring. No acute consolidation, nodule or mass. 2. Stable enlarged heterogeneous left thyroid gland. <Electronically signed by Buzz Gtz > 09/01/201909
--- NOTE | 2020-09-01 19:22 | REP ---
INDICATION: MALIGNANT NEOPLASM OF COLON, UNSPEC COMPARISON: 03/03/2020 TECHNIQUE: Axial noncontrast images from the lung bases to the pubic symphysis with coronal and sagittal reformations. This CT examination was performed using the following dose reduction techniques: Automated exposure control, adjustment of mA and/or kv according to the patient's size, and use of iterative reconstruction technique. FINDINGS: Liver, spleen, pancreas, bilateral adrenal glands and right kidney are essentially normal for noncontrast evaluation. Left kidney includes small hypodense and isodense round lesions measuring up to 15 mm likely representing simple and complex cysts stable compared to prior examination. Small gallstones are identified without acute cholecystitis. The enteric system demonstrates postsurgical changes in the right lower quadrant along with scattered colonic and sigmoid diverticulosis. No bowel obstruction or obvious acute inflammatory process noted. Rim calcified nodule adjacent to the anastomosis in the right lower quadrant remains stable. Stable soft tissue nodule/lymph node anterior to the right psoas muscle adjacent to the distal IVC remains unchanged and measures 10 mm diameter (series 2, image 75). Pelvis demonstrates normal bladder and evidence for prior hysterectomy. No pelvic fluid or ascites. No free air. No significant adenopathy. Abdominal aorta without aneurysm or dissection. Musculoskeletal structures demonstrate degenerative changes without acute osseous abnormality. IMPRESSION: 1. No evidence for recurrence or metastatic disease. Stable rim calcified nodular density at the anastomosis in the right lower quadrant and stable 10 mm lymph node anterior to the right psoas muscle. 2. Chronic nonacute findings as described above including cholelithiasis and diverticulosis. 3. Presumed simple and complex cysts in the left kidney similar to prior examination <Electronically signed by Buzz Gtz > 09/01/201917
== END ==
LOC: M RAD 11:04
PROVIDERS: ATTEND Internal Medicine Hematology & Oncology
DX: C18.9 Malignant neoplasm of colon, unspecified (principal); R74.8 Abnormal levels of other serum enzymes; R22.42 Localized swelling, mass and lump, left lower limb

== ENCOUNTER → 2020-10-07 | Outpatient (REF) | payer MEDICARE ==
[2020-10-07 16:15] LABS: PTH INTACT 34.2 PG/ML (18.5-88.0); TOTAL 25(OH) VITAMIN D 41.7 NG/ML (30.0-100.0)
[2020-10-16 01:07] LABS: Alkaline Phosphatase Iso-Bone 20 % (14-68); Alkaline Phosphatase Iso-Intes 0 % (0-18); Alkaline Phosphatase Iso-Liver 80 % (18-85); TOTAL ALK PHOS 184 IU/L (39-117)
== END ==
LOC: M SFHCCLAY 09:50
PROVIDERS: ATTEND Family Medicine
DX: R74.8 Abnormal levels of other serum enzymes (principal); Z79.899 Other long term (current) drug therapy
CPT/HCPCS: 82306; 83970; 84080; G0463

== ENCOUNTER → 2021-02-21 | Outpatient (REF) | payer MEDICARE ==
[2021-02-21 17:29] LABS: BASO % 0.4 % (0.0-1.0); EOS # 0.1 10^3/uL (0.0-0.5); EOS % 1.8 % (0.0-3.0); HEMATOCRIT 40.6 % (36.0-47.0); HEMOGLOBIN 13.2 g/dl (12.0-15.5); LYMPH # 1.1 10^3/uL (1.5-5.0); LYMPH % 21.4 % (24.0-44.0); MEAN CORPUSCULAR HEMOGLOBIN 30.7 pg (27.0-33.0); MEAN CORPUSCULAR HGB CONC 32.5 g/dl (32.0-36.5); MEAN CORPUSCULAR VOLUME 94.4 fl (80.0-96.0); MONO # 0.5 10^3/uL (0.0-0.8); MONO % 9.1 % (2.0-8.0); NEUTROPHILS # 3.3 10^3/uL (1.5-8.5); NEUTROPHILS % 67.1 % (36.0-66.0); PLATELET COUNT, AUTOMATED 176 10^3/uL (150-450)
[2021-02-21 17:34] LABS: ALBUMIN 3.8 GM/DL (3.2-5.2); ALT/SGPT 58 U/L (12-78); BILIRUBIN,TOTAL 0.7 MG/DL (0.2-1.0); BLOOD UREA NITROGEN 19 MG/DL (7-18); CALCIUM LEVEL 9.3 MG/DL (8.8-10.2); CARBON DIOXIDE LEVEL 30 MEQ/L (21-32); CHLORIDE LEVEL 107 MEQ/L (98-107); CREATININE FOR GFR 0.78 MG/DL (0.55-1.30); GLOMERULAR FILTRATION RATE > 60.0 (>32); GLUCOSE, FASTING 95 MG/DL (70-100); POTASSIUM SERUM 4.6 MEQ/L (3.5-5.1); SODIUM LEVEL 142 MEQ/L (136-145); TOTAL PROTEIN 6.8 GM/DL (6.4-8.2)
== END ==
LOC: M LABDRAWC 15:41
PROVIDERS: ATTEND Internal Medicine Hematology & Oncology
DX: C18.9 Malignant neoplasm of colon, unspecified (principal); R74.8 Abnormal levels of other serum enzymes; R22.42 Localized swelling, mass and lump, left lower limb

== ENCOUNTER → 2021-08-23 | Outpatient (CLI) | payer MEDICARE | LOC: M RAD 10:48 | PROVIDERS: ATTEND Internal Medicine Hematology & Oncology | DX: C18.9 Malignant neoplasm of colon, unspecified (principal) | CPT/HCPCS: 71260; 74177; Q9967 ==

== ENCOUNTER → 2021-11-03 | Outpatient (REF) | payer MEDICARE ==
[2021-11-03 16:22] LABS: BLOOD UREA NITROGEN 20 MG/DL (7-18); CREATININE FOR GFR 0.78 MG/DL (0.55-1.30); GLOMERULAR FILTRATION RATE > 60.0 (>32)
== END ==
LOC: M LABDRAWC 15:36
PROVIDERS: ATTEND Internal Medicine Hematology & Oncology
DX: Z01.812 Encounter for preprocedural laboratory examination (principal); C18.9 Malignant neoplasm of colon, unspecified; R74.8 Abnormal levels of other serum enzymes; R22.42 Localized swelling, mass and lump, left lower limb

== ENCOUNTER → 2021-11-23 | Outpatient (CLI) | payer MEDICARE ==
[~2021-11-23] MED LIST changes: -GASTROGRAFIN SOLUTION 30ML (Q9963) As Ordered ONE; -ISOVUE-370 76% 100ML VIAL (Q9967) As Ordered ONE; +ISOVUE-370 76% 100ML VIAL As Ordered ONE
== END ==
LOC: M RAD 09:19
PROVIDERS: ATTEND Internal Medicine Hematology & Oncology
DX: C18.9 Malignant neoplasm of colon, unspecified (principal); R74.8 Abnormal levels of other serum enzymes; R22.42 Localized swelling, mass and lump, left lower limb
CPT/HCPCS: 71260; Q9967

== ENCOUNTER → 2021-12-27 | Outpatient (CLI) | payer MEDICARE | LOC: M PLARAD 12:27 | PROVIDERS: ATTEND Internal Medicine Hematology & Oncology | DX: E04.1 Nontoxic single thyroid nodule (principal); Z90.49 Acquired absence of other specified parts of digestive tract; N28.1 Cyst of kidney, acquired; K57.30 Diverticulosis of large intestine without perforation or abscess without bleeding; K80.20 Calculus of gallbladder without cholecystitis without obstruction; C18.8 Malignant neoplasm of overlapping sites of colon; R74.8 Abnormal levels of other serum enzymes; R22.42 Localized swelling, mass and lump, left lower limb | CPT/HCPCS: 78815; A9552 ==

== ENCOUNTER → 2022-06-20 | Outpatient (REF) | payer MEDICARE ==
[2022-06-20 18:58] LABS: HEMATOCRIT 38.7 % (36.0-47.0); HEMOGLOBIN 12.4 g/dl (12.0-15.5); MEAN CORPUSCULAR HEMOGLOBIN 30.7 pg (27.0-33.0); MEAN CORPUSCULAR VOLUME 95.8 fl (80.0-96.0); PLATELET COUNT, AUTOMATED 166 10^3/uL (150-450); RED BLOOD COUNT 4.04 10^6/uL (4.00-5.40)
[2022-06-20 19:19] LABS: CHLORIDE LEVEL 104 MMOL/L (98-107); POTASSIUM SERUM 4.4 MMOL/L (3.5-5.1); SODIUM LEVEL 142 MMOL/L (136-145)
[2022-06-20 19:20] LABS: ALBUMIN 3.6 G/DL (3.2-5.2); CARBON DIOXIDE LEVEL 30 MMOL/L (20-31)
[2022-06-20 19:25] LABS: CALCIUM LEVEL 9.3 MG/DL (8.3-10.6); GLUCOSE, FASTING 103 MG/DL (74-106)
[2022-06-20 19:26] LABS: ALT/SGPT 32 U/L (7.0-40); BLOOD UREA NITROGEN 21 MG/DL (9-23)
[2022-06-20 19:28] LABS: BILIRUBIN,TOTAL 0.7 MG/DL (0.3-1.2); CREATININE FOR GFR 0.77 MG/DL (0.55-1.30); GLOMERULAR FILTRATION RATE > 60.0 (>32); TOTAL PROTEIN 6.3 G/DL (5.7-8.2)
== END ==
LOC: M LAB REF 17:18
PROVIDERS: ATTEND Internal Medicine Hematology & Oncology
DX: C18.9 Malignant neoplasm of colon, unspecified (principal); R74.8 Abnormal levels of other serum enzymes; C18.8 Malignant neoplasm of overlapping sites of colon; R22.42 Localized swelling, mass and lump, left lower limb

== ENCOUNTER → 2022-07-04 | Outpatient (CLI) | payer MEDICARE | LOC: M RAD 12:31 | PROVIDERS: ATTEND Internal Medicine Hematology & Oncology | DX: C18.9 Malignant neoplasm of colon, unspecified (principal) | CPT/HCPCS: 71260; 74177; Q9967 ==

== ENCOUNTER → 2023-06-18 | Outpatient (REF) | payer MEDICARE ==
[2023-06-18 18:59] LABS: BASO % 0.4 % (0.0-1.0); EOS # 0.1 10^3/uL (0.0-0.5); EOS % 2.6 % (0.0-3.0); HEMATOCRIT 39.2 % (36.0-47.0); HEMOGLOBIN 12.5 g/dl (12.0-15.5); LYMPH % 21.9 % (24.0-44.0); MEAN CORPUSCULAR HEMOGLOBIN 30.3 pg (27.0-33.0); MEAN CORPUSCULAR HGB CONC 31.9 g/dl (32.0-36.5); MEAN CORPUSCULAR VOLUME 95.1 fl (80.0-96.0); MONO # 0.5 10^3/uL (0.0-0.8); MONO % 10.6 % (2.0-8.0); NEUTROPHILS # 2.9 10^3/uL (1.5-8.5); NEUTROPHILS % 64.5 % (36.0-66.0); PLATELET COUNT, AUTOMATED 149 10^3/uL (150-450); RED BLOOD COUNT 4.12 10^6/uL (4.00-5.40); WHITE BLOOD COUNT 4.5 10^3/uL (4.0-10.0)
[2023-06-18 19:14] LABS: ALBUMIN 3.6 G/DL (3.2-5.2); ALKALINE PHOSPHATASE 107 U/L (46-116); ALT/SGPT 38 U/L (7.0-40); AST/SGOT 28 U/L (<34); BILIRUBIN,TOTAL 0.8 MG/DL (0.3-1.2); BLOOD UREA NITROGEN 24 MG/DL (9-23); CALCIUM LEVEL 9.1 MG/DL (8.3-10.6); CARBON DIOXIDE LEVEL 29 MMOL/L (20-31); CHLORIDE LEVEL 107 MMOL/L (98-107); CREATININE FOR GFR 0.79 MG/DL (0.55-1.30); GLOMERULAR FILTRATION RATE > 60.0 (>32); GLUCOSE, FASTING 93 MG/DL (74-106); POTASSIUM SERUM 4.7 MMOL/L (3.5-5.1); SODIUM LEVEL 145 MMOL/L (136-145); TOTAL PROTEIN 6.5 G/DL (5.7-8.2)
[2023-06-18 19:19] LABS: CARCINOEMBRYONIC ANTIGEN < 2.0 NG/ML (<2.5)
== END ==
LOC: M LABDRAWC 17:03
PROVIDERS: ATTEND Internal Medicine Hematology & Oncology
DX: C18.9 Malignant neoplasm of colon, unspecified (principal); R74.8 Abnormal levels of other serum enzymes

== ENCOUNTER → 2023-11-08 | Outpatient (REF) | payer MEDICARE | LOC: M SFHCCLAY 09:08 | PROVIDERS: ATTEND Family Medicine | DX: E78.2 Mixed hyperlipidemia (principal); E04.2 Nontoxic multinodular goiter; I48.92 Unspecified atrial flutter; Z85.038 Personal history of other malignant neoplasm of large intestine ==

== ENCOUNTER → 2024-02-06 | Outpatient (REF) | payer MEDICARE ==
[2024-02-06 18:32] LABS: BASO % 0.3 % (0.0-1.0); EOS # 0.1 10^3/uL (0.0-0.5); EOS % 0.9 % (0.0-3.0); HEMATOCRIT 39.6 % (36.0-47.0); HEMOGLOBIN 12.4 g/dl (12.0-15.5); LYMPH # 1.1 10^3/uL (1.5-5.0); LYMPH % 18.7 % (24.0-44.0); MEAN CORPUSCULAR HEMOGLOBIN 29.4 pg (27.0-33.0); MEAN CORPUSCULAR HGB CONC 31.3 g/dl (32.0-36.5); MEAN CORPUSCULAR VOLUME 93.8 fl (80.0-96.0); MONO # 0.5 10^3/uL (0.0-0.8); MONO % 8.4 % (2.0-8.0); NEUTROPHILS # 4.2 10^3/uL (1.5-8.5); NEUTROPHILS % 71.5 % (36.0-66.0); PLATELET COUNT, AUTOMATED 268 10^3/uL (150-450); RED BLOOD COUNT 4.22 10^6/uL (4.00-5.40); WHITE BLOOD COUNT 5.8 10^3/uL (4.0-10.0)
[2024-02-06 19:12] LABS: FREE T4 1.32 NG/DL (0.89-1.76); THYROID STIMULATING HORMONE 3.725 uIU/ML (0.55-4.78)
[2024-02-06 19:17] LABS: ALBUMIN 3.4 G/DL (3.2-5.2); ALKALINE PHOSPHATASE 179 U/L (46-116); ALT/SGPT 27 U/L (7.0-40); AST/SGOT 15 U/L (<34); BILIRUBIN,TOTAL 0.7 MG/DL (0.3-1.2); BLOOD UREA NITROGEN 22 MG/DL (9-23); CALCIUM LEVEL 9.5 MG/DL (8.3-10.6); CARBON DIOXIDE LEVEL 28 MMOL/L (20-31); CHLORIDE LEVEL 106 MMOL/L (98-107); CHOLESTEROL LEVEL 260 MG/DL (<200); CHOLESTEROL RISK RATIO 4.05 (<5); CREATININE FOR GFR 0.89 MG/DL (0.55-1.30); GLOMERULAR FILTRATION RATE > 60.0 (>32); GLUCOSE, FASTING 104 MG/DL (74-106); HDL CHOLESTEROL 64.1 MG/DL (>40); LDL CHOLESTEROL 166.7 MG/DL (<100); NON-HDL-C 195.9 MG/DL; POTASSIUM SERUM 4.3 MMOL/L (3.5-5.1); SODIUM LEVEL 143 MMOL/L (136-145); TOTAL PROTEIN 6.6 G/DL (5.7-8.2); TRIGLYCERIDES LEVEL 146 MG/DL (<150)
[2024-02-06 19:54] LABS: FREE T3 3.1 PG/ML (2.3-4.2)
== END ==
LOC: M SFHCCLAY 14:47
PROVIDERS: ATTEND Family Medicine
DX: E78.2 Mixed hyperlipidemia (principal); E04.2 Nontoxic multinodular goiter; I48.92 Unspecified atrial flutter; Z85.038 Personal history of other malignant neoplasm of large intestine

== ENCOUNTER → 2024-02-11 | Outpatient (REF) | payer MEDICARE ==
[2024-02-13 17:07] LABS: URINE TOTAL PROTEIN 8.5 mg/dL (Not Estab.)
== END ==
LOC: M SFHCCLAY 16:31
PROVIDERS: ATTEND Family Medicine
DX: Z00.00 Encounter for general adult medical examination without abnormal findings (principal)

== ENCOUNTER → 2024-05-01 | Outpatient (REF) | payer MEDICARE | LOC: M SFHCCLAY 15:14 | PROVIDERS: ATTEND Family Medicine | DX: R21 Rash and other nonspecific skin eruption (principal) ==

== ENCOUNTER → 2025-05-19 | Outpatient (REF) | payer MEDICARE ==
[2025-05-19 18:36] LABS: ALT/SGPT 25.0 U/L (7.0-40); AST/SGOT 23.0 U/L (<34); CALCIUM LEVEL 9.4 MG/DL (8.3-10.6); CARBON DIOXIDE LEVEL 31.0 MMOL/L (20-31); CHLORIDE LEVEL 104.0 MMOL/L (98-107); CHOLESTEROL LEVEL 264.0 MG/DL (<200); CHOLESTEROL RISK RATIO 3.11 (<5); CREATININE FOR GFR 1.03 MG/DL (0.55-1.30); FREE T4 1.38 NG/DL (0.89-1.76); GLOMERULAR FILTRATION RATE 53.3 (>32); LDL CHOLESTEROL 145.2 MG/DL (<100); NON-HDL-C 179.2 MG/DL; POTASSIUM SERUM 4.1 MMOL/L (3.5-5.1); SODIUM LEVEL 144.0 MMOL/L (136-145); TRIGLYCERIDES LEVEL 170.0 MG/DL (<150)
[2025-05-19 19:09] LABS: ESTIMATED AVERAGE GLUCOSE 131.0 MG/DL (60-110)
== END ==
LOC: M SFHCCLAY 09:55
PROVIDERS: ATTEND Physician Assistant
DX: Z00.00 Encounter for general adult medical examination without abnormal findings (principal); I10 Essential (primary) hypertension; I48.92 Unspecified atrial flutter; I89.0 Lymphedema, not elsewhere classified; Z85.038 Personal history of other malignant neoplasm of large intestine; E04.2 Nontoxic multinodular goiter; Z79.899 Other long term (current) drug therapy